=== PATIENT | male | born 1950 | race American Indian/Alaskan Native ===

== ENCOUNTER 2019-05-12 11:59 | Emergency (ER) | payer MEDICARE ==
--- NOTE | 2019-05-12 12:13 | Emergency Department Report ---
Blank Doc - Documentation Documentation: 69 yo male presents to Ed cc of green prod sputum cough x 2 weeks cxr ACC
--- NOTE | 2019-05-12 12:36 | XRay Report ---
ROUTINE CHEST, TWO VIEWS: HISTORY: Productive cough. The trachea, heart, mediastinal contour, lung mcclain and bony thorax are unremarkable. IMPRESSION: Unremarkable chest x-ray.
--- NOTE | 2019-05-12 15:36 | Emergency Department Report ---
Minor Respiratory - HPI Chief Complaint: Upper Respiratory Infection Stated Complaint: COUGH Time Seen by Provider: 05/12/19 12:11 Duration: 2 weeks Severity: mild Minor Respiratory: Yes Rhinorrhea, Yes Able to Tolerate Fluids, Yes Cough, Yes Sick Contacts, No Sore Throat, No Ear Pain, No Hemoptysis, No Chest Pain, No Shortness of Breath, No Fever Other History: This is a 69-year-old male that presents to the emergency room with a cough for 2 weeks. The patient states he recently moved here from [place] 3 months ago. Past medical history of diabetes type 2, hypertension, and arthritis. Patient states he called a primary care provider and unable to get an appointment currently. He is currently taking NyQuil, DayQuil, and Claritin with no improvement of symptoms. Patient denies metallic taste, burning sensation to throat, nausea or vomiting, fever, chest pain, shortness of breath, or diarrhea. ED Review of Systems ROS: Stated complaint: COUGH Other details as noted in HPI Constitutional: denies: chills, fever ENT: denies: ear pain, throat pain Respiratory: cough. denies: shortness of breath, wheezing Cardiovascular: denies: chest pain, palpitations Gastrointestinal: denies: abdominal pain, nausea, diarrhea Musculoskeletal: denies: back pain, joint swelling, arthralgia Skin: denies: rash, lesions Neurological: denies: headache, weakness, paresthesias Psychiatric: denies: anxiety, depression ED Past Medical Hx - Past Medical History Previous Medical History?: Yes Hx Hypertension: Yes Hx CVA: No Hx Heart Attack/AMI: No Hx Congestive Heart Failure: No Hx Diabetes: Yes Hx Deep Vein Thrombosis: No Hx Pulmonary Embolism: No Hx GERD: No Hx Liver Disease: No Hx Renal Disease: No Hx of Cancer: No Hx Sickle Cell Disease: No Hx Arthritis: No Hx Headaches / Migraines: No Hx Seizures: No Hx Kidney Stones: No Hx Psychiatric Treatment: No Hx Asthma: No Hx COPD: No Hx Tuberculosis: No Hx Dementia: No Hx HIV: No - Surgical History Past Surgical History?: Yes Hx Coronary Stent: No Hx Open Heart Surgery: No Hx Pacemaker: No Hx Internal Defibrillator: No Hx Cholecystectomy: No Hx Appendectomy: No Hx Breast Surgery: No Additional Surgical History: multiple surgeries on legs - Social History Smoking Status: Former Smoker Substance Use Type: None - Medications Home Medications: Home Medications Medication Instructions Recorded Confirmed Last Taken Type ALBUTEROL Inhaler (OR & NICU) 2 puff IH QID PRN #1 inhalation 05/12/19 Unknown Rx [ProAir HFA Inhaler] Azithromycin [Zithromax Z-ISHMAEL] 250 mg PO DAILY #6 tablet 05/12/19 Unknown Rx Benzonatate [Tessalon Perles] 100 mg PO Q8HR PRN #30 capsule 05/12/19 Unknown Rx Minor Respiratory Exam - Exam General: Vital signs noted. No distress. Alert and acting appropriately. HEENT: Yes Pharyngeal Erythema (erythematous posterior pharynx, uvula midline), Yes Moist Mucous Membranes, Yes Rhinorrhea (turbinates mildly congested with clear discharge), No Pharyngeal Exudates, No Conjuctival Injection, No Frontal Tenderness, No Maxillary Tenderness Ear: Neither TM Bulge, Neither TM Erythema, Neither EAC Pain, Neither EAC Discharge Neck: Yes Supple, No Adenopathy Lungs: Yes Good Air Exchange, No Wheezes, No Ronchi, No Stridor, No Cough, No Labored Respirations, No Retractions, No Use of Accessory Muscles, No Other Abnormal Lung Sounds Heart: Yes Regular, No Murmur Abdomen: Yes Normal Bowel Sounds, No Tenderness, No Peritoneal Signs Skin: No Rash, No Edema Neurologic: Alert and oriented, no deficits. Musculoskeletal: Unremarkable. ED Course Vital Signs 05/12/19 12:12 Temperature 98.1 F Pulse Rate 80 Respiratory 16 Rate Blood Pressure 147/96 O2 Sat by Pulse 94 Oximetry ED Medical Decision Making - Medical Decision Making Patient was examined by me. Vitals are normal and patient is in no acute distress. Obtained a chest x-ray. The chest x-ray was dictated by the radiologist with no acute findings. Findings are susceptible of acute bronchitis. Start azithromycin, albuterol inhaler, and benzonatate. Patient informed of results. Plan discussed with patient to discharge home and treat outpatient. He agrees with ER plan. Patient discharged home in stable condition. Follow up with PCP in 2-3 days. Critical care attestation.: If time is entered above; I have spent that time in minutes in the direct care of this critically ill patient, excluding procedure time. ED Disposition Clinical Impression: Cough in adult Acute bronchitis Qualifiers: Bronchitis organism: unspecified organism Qualified Code(s): J20.9 - Acute bronchitis, unspecified Disposition: DC-01 TO HOME OR SELFCARE Is pt being admited?: No Does the pt Need Aspirin: No Condition: Stable Instructions: Acute Bronchitis (ED) Additional Instructions: Complete full course of antibiotics as prescribed. Increase fluid intake. Wash hands frequently. Follow-up with primary care doctor if symptoms are not improving over the next 1-2 weeks. Prescriptions: ALBUTEROL Inhaler (OR & NICU) [ProAir HFA Inhaler] 2 puff IH QID PRN #1 inhalation PRN Reason: Shortness Of Breath Benzonatate [Tessalon Perles] 100 mg PO Q8HR PRN #30 capsule PRN Reason: Cough Azithromycin [Zithromax Z-ISHMAEL] 250 mg PO DAILY #6 tablet Referrals: BISHOP SANCHEZ MD [Staff Physician] - 3-5 Days [facility] [Provider Group] - 3-5 Days [facility] [Provider Group] - 3-5 Days [facility] [Provider Group] - 3-5 Days Time of Disposition: 15:36
[2019-05-12 15:50] VITALS: BP 142/74
== END 2019-05-12 15:49 | disposition home or self-care (01) ==
LOC: ED 11:59
DX: J20.9 Acute bronchitis, unspecified (principal); I10 Essential (primary) hypertension; E11.9 Type 2 diabetes mellitus without complications; M19.90 Unspecified osteoarthritis, unspecified site; Z87.891 Personal history of nicotine dependence; Z88.5 Allergy status to narcotic agent
CPT/HCPCS: 71046; 99283

== ENCOUNTER 2019-06-29 07:52 | Day surgery (SDC) | payer MEDICARE ==
[2019-06-29] MEDS ORDERED: NACL 0.9% 500 ML 500 ML ONE (08:30)
[2019-06-29 08:54] LABS: Basophils % (Auto) 0.6 % (0.0-1.8); Eosinophils # (Auto) 0.2 K/mm3 (0.0-0.4); Eosinophils % (Auto) 2.9 % (0.0-4.3); Lymphocytes # (Auto) 1.9 K/mm3 (1.2-5.4); Lymphocytes % (Auto) 31.9 % (13.4-35.0); Mean Corpuscular HGB Conc 33 % (32-34); Mean Corpuscular Volume 91 fl (84-94); Monocytes # (Auto) 0.5 K/mm3 (0.0-0.8); Monocytes % (Auto) 7.7 % (0.0-7.3); Platelet Count 150 K/mm3 (140-440); Red Blood Count 4.92 M/mm3 (3.65-5.03); Red Cell Distribution Width 13.9 % (13.2-15.2)
[2019-06-29] MEDS ORDERED: NACL 0.9% 500 ML 500 ML IV SCH (09:00)
[2019-06-29 09:05] LABS: INR 1.01 (0.87-1.13)
[2019-06-29 09:11] LABS: BUN/Creatinine Ratio 38; Blood Urea Nitrogen 23 mg/dL (9-20); Calcium 9.3 mg/dL (8.4-10.2); Hemolysis Index 12
[2019-06-29] MEDS ORDERED: VERSED ONE (09:35)
[2019-06-29] MEDS ORDERED: SUBLIMAZE ONE (09:36)
[2019-06-29] MEDS ORDERED: HEPARIN/NS 5000 UNIT/500ML(CATH LAB) 1,000 ML IR ONE (09:36)
[2019-06-29] MEDS ORDERED: HEPARIN 10,000 UNITS/10 ML ONE (09:36)
[2019-06-29] MEDS ORDERED: XYLOCAINE 2% INFILTRATI ONE ×2 (09:37→10:19)
[2019-06-29] MEDS ORDERED: CALAN ONE (09:37)
[2019-06-29] MEDS ORDERED: HEPARIN 10,000 UNITS/10 ML 5,000 UNIT in NACL 0.9% 500 ML 500 ML IR ONE ×2 (10:11→10:12)
[2019-06-29] MEDS ORDERED: SUBLIMAZE IV ONE (10:15)
[2019-06-29] MEDS ORDERED: VERSED IV ONE (10:15)
[2019-06-29] MEDS ORDERED: CALAN IV ONE (10:20)
[2019-06-29] MEDS ORDERED: HEPARIN 10,000 UNITS/10 ML IV ONE (10:20)
[2019-06-29] MEDS ORDERED: TYLENOL PO ONE (11:08)
--- NOTE | 2019-06-29 11:11 | Short Stay Summary ---
Short Stay Documentation Date of service: 06/29/19 - History Principal diagnosis: CAD H&P: obtained from office - Allergies and Medications Current Medications: Allergies codeine Adverse Reaction (Verified 05/12/19 12:14) Vomiting hydrocodone Adverse Reaction (Verified 05/12/19 12:14) Vomiting Home Medications Medication Instructions Recorded Confirmed Last Taken Type Allopurinol [Zyloprim] 100 mg PO QDAY 06/29/19 06/29/19 06/28/19 History Aspirin [Adult Aspirin] 81 mg PO DAILY 06/29/19 06/29/19 06/29/19 06:00 History DULoxetine [Cymbalta] 30 mg PO BID 06/29/19 06/29/19 06/28/19 History Diclofenac 1% [Diclofenac 1% 2 gm TP QID PRN 06/29/19 06/29/19 06/28/19 History topical gel] Empagliflozin [Jardiance] 25 mg PO QAM 06/29/19 06/29/19 06/28/19 History Esomeprazole Magnesium [NexIUM] 40 mg PO QDAY 06/29/19 06/29/19 06/28/19 History 40 mg Loratadine 10 mg PO DAILY 06/29/19 06/29/19 06/28/19 History 10 mg Naltrexone 50 mg PO DAILY 06/29/19 06/29/19 06/28/19 History Simethicone [Gas Relief] 80 mg PO QHS 06/29/19 06/29/19 06/28/19 History dilTIAZem HCl [Diltiazem ER] 180 mg PO DAILY 06/29/19 06/29/19 06/28/19 History metFORMIN [Glucophage] 500 mg PO QDAY 06/29/19 06/29/19 06/28/19 History Active Medications Sodium Chloride (Nacl 0.9% 500 Ml) 500 mls @ 50 mls/hr IV DIRECT SUNIL Stop: 06/29/19 18:59 Last Admin: 06/29/19 09:31 Dose: 50 mls/hr Documented by: - Physical exam General appearance: no acute distress HEENT: Atraumatic Lungs: Clear to auscultation Heart: Regular rate Gastrointestinal: normal Male Genitourinary: deferred Rectal Exam: deferred Extremities: pulses intact - Brief post op/procedure progress note Date of procedure: 06/29/19 Pre-op diagnosis: CAD Post-op diagnosis: same Procedure: LHC Findings: Dictated report to follow. Surgeon: JORGE HANLEY Estimated blood loss: minimal - Hospital course Hospital course: Patient underwent LHC with right radial approach. No complications. Full report to follow. - Disposition Condition at discharge: Good Disposition: DC-01 TO HOME OR SELFCARE - Discharge Diagnoses (1) CAD (coronary artery disease) Status: Acute Short Stay Discharge Plan Follow up with: MARNI BERNAL MD [Primary Care Provider] - 7 Days
--- NOTE | 2019-06-29 11:38 | Cardiac Catherization Report ---
CARDIAC CATHETERIZATION REPORT The patient is a 69-year-old gentleman with history of hypertension, atypical chest pain. He had noninvasive evaluation done, which showed dilated left ventricle with ejection fraction around 35% and noted to have mild aortic regurgitation. In addition, the patient also has some atypical chest pain, burning type of chest pain lasting a minute or so few days ago. He underwent PET scan - myocardial perfusion imaging, which showed a small mild fixed apical perfusion defect, small mild fixed septal perfusion defect and small mild fixed distal inferior wall perfusion defect. Ejection fraction was 36% at rest and 43% during stress. Because of these abnormalities, he was scheduled for cardiac catheterization for definitive diagnosis and treatment. The patient is aware of the procedure, potential complications and alternatives of the therapy available. DESCRIPTION OF PROCEDURE: The patient was brought to the catheterization laboratory in the fasting condition. The patient was evaluated for moderate sedation and he was felt to be appropriate candidate for moderate sedation. The patient was given IV Versed and fentanyl around 10:13 a.m. Subsequently, right wrist area was thoroughly cleansed with chlorhexidine solution, sterile drapes were applied. Local anesthesia was given in the right wrist area, right radial artery puncture was made using 21-gauge arterial puncture needle. Subsequently, 5-Kyrgyz slender sheath was introduced. A 6-Kyrgyz multipurpose catheter was used to obtain the angiograms of the left ventricle in MARTINEZ and MACEDONIAN projection using hand injection. Subsequently, 5-Kyrgyz TIG catheter was used to obtain the angiograms of the left coronary artery in multiple views, followed by angiograms of the right coronary artery in multiple views. At the end of the procedure, catheter and sheath were removed and good hemostasis was achieved with application of radial band. The patient tolerated the procedure well. The patient was monitored for any side effects from moderate sedation throughout the procedure including pulse oximetry monitoring, EKG monitoring and hemodynamic monitoring. The patient tolerated the moderate sedation well. At the end of the procedure, the patient is communicating normally, moving well without any side effects. The patient's sedation started at 10:13 a.m. and monitoring ended at 10:35 a.m. The patient was transferred to the room in stable condition. Following findings were noted. HEMODYNAMICS: 1. Opening aortic pressure 97/78, left ventricular pressure 97/15. No gradient across the aortic valve. Estimated ejection fraction 35-40%. 2. Left ventriculogram done in MARTINEZ projection showed mildly dilated left ventricle with mild diffuse hypokinesis, ejection fraction 35-40%. Mitral regurgitation could not be evaluated because of limited amount of dye injected. 3. Right coronary artery dominant vessel arises normally from right coronary cusp, only minimal irregularities are noted. 4. Left coronary artery arises normally from left coronary cusp. There is calcification of the left main area. Left main without significant disease angiographically. LAD shows mild irregularities in addition to an eccentric 60-70% lesion in the mid LAD at the bifurcation to a diagonal branch, which is a large vessel. Except for this mid LAD lesion, rest of the LAD is without significant disease. Circumflex artery and its branches show only minimal irregularities. 5. Collaterals none. FINAL IMPRESSION: 1. Mildly dilated left ventricle with ejection fraction 35-40%. Mitral regurgitation could not be evaluated. 2. A 60-70% mid LAD lesion at the origin of a diagonal branch. This is eccentric lesion. Rest of the coronary showing only minimal irregularities. At this time, the patient has only one episode of chest pain lasting for a few minutes. Considering his LV dysfunction, would continue medical therapy. If he continues to have anginal pains in spite of medical therapy, then can consider intervention of the mid LAD lesion. Considering overall clinical picture, would continue medical therapy and risk factor modification. The patient tolerated the procedure well. No untoward complications were noted from moderate sedation. No hematoma noted in the right wrist area. Findings were explained to the patient and he understands. [facility]# [id number] SMITHA/SAUNDRA
[2019-06-29 14:17] VITALS: BP 109/70
== END 2019-06-29 15:15 | disposition home or self-care (01) ==
LOC: CATH 07:52 → CATHLABREC 07:52
PROVIDERS: ATTEND Internal Medicine
DX: I35.1 Nonrheumatic aortic (valve) insufficiency (principal); I25.10 Atherosclerotic heart disease of native coronary artery without angina pectoris; I10 Essential (primary) hypertension; M10.9 Gout, unspecified; I42.9 Cardiomyopathy, unspecified; E78.00 Pure hypercholesterolemia, unspecified; E66.01 Morbid (severe) obesity due to excess calories; G47.33 Obstructive sleep apnea (adult) (pediatric); E11.9 Type 2 diabetes mellitus without complications; Z88.6 Allergy status to analgesic agent; Z96.653 Presence of artificial knee joint, bilateral; Z88.8 Allergy status to other drugs, medicaments and biological substances; Z79.82 Long term (current) use of aspirin; Z79.899 Other long term (current) drug therapy; Z87.891 Personal history of nicotine dependence; Z82.49 Family history of ischemic heart disease and other diseases of the circulatory system; Z83.3 Family history of diabetes mellitus; Z86.73 Personal history of transient ischemic attack (TIA), and cerebral infarction without residual deficits; Z79.84 Long term (current) use of oral hypoglycemic drugs; Z72.89 Other problems related to lifestyle; Z90.49 Acquired absence of other specified parts of digestive tract; Z98.890 Other specified postprocedural states
CPT/HCPCS: 36415; 80048; 85025; 85610; 93005; 93010; 93458; C1887; C1894; J1644; J2250; J3010; J7040; Q9967